=== PATIENT | male | born 1990 | race Caucasian/White ===

== ENCOUNTER 2016-06-25 11:23 | Emergency (ER) | payer SELFPAY ==
[2016-06-25 13:24] VITALS: BP 128/85
--- NOTE | 2016-06-25 14:35 | RAD ---
HISTORY: Tender distal third of the humerus, medial condyle after injury of the left elbow COMPARISONS: None VIEWS: 4, Frontal, lateral, and oblique views of the left elbow FINDINGS: BONE DENSITY: Normal. BONES: There is no displaced fracture. JOINTS: There is no arthropathy. There is no posterior supracondylar fat pad to suggest a joint effusion. ALIGNMENT: There is no dislocation. SOFT TISSUES: Unremarkable. OTHER FINDINGS: None. IMPRESSION: NO ACUTE OSSEOUS INJURY. IF SYMPTOMS PERSIST, RECOMMEND REPEAT IMAGING.
--- NOTE | 2016-06-25 14:36 | RAD ---
INDICATION: Left shoulder injury. TECHNIQUE: 3 views of the left shoulder were obtained. FINDINGS: The bones are in normal alignment. No fracture is seen. Joint spaces appear maintained. IMPRESSION: NO EVIDENCE OF FRACTURE.
--- NOTE | 2016-06-25 14:41 | UC ---
Upper Extremity HPI - HPI Summary HPI Summary: pt p/w wiith left shoulder pain that started yesterday whill he was crawling through an attic installing insulation. pt describes the pain at 8/10 sharp pain that radiates from the shoulder to the elbow with intermittant tingling sensation pt took a rest and the pain subsided somewhat. the next morning, pt was taking a ladder off a truck and triggored the same pain. denies trauma, weakness, f/c/s/n/v/d/abd pain, dizziness, cp, sob. - History of Current Complaint Chief Complaint: UCUpperExtremity Stated Complaint: SHOULDER INJURY Time Seen by Provider: 06/25/16 13:43 Hx Obtained From: Patient Onset/Duration: Sudden Onset, Lasting Days - 2, Worse Since - WORSE TODAY Severity Initially: Severe Severity Currently: Moderate Pain Intensity: 6 Location Of Pain: Is Discrete @ - left shoulder, Radiates To - elbow Character: Sharp Aggravating Factor(s): Movement Alleviating Factor(s): Ice, OTC Meds, Rest Associated Signs And Symptoms: Positive: Numbness/Tingling. Negative: Swelling , Redness, Bruising, Fever, Weakness Related History: Dominant Hand Right - Risk Factors Non-Orthopedic Risk Factor: Negative - Allergies/Home Medications Allergies/Adverse Reactions: Allergies Allergy/AdvReac Type Severity Reaction Status Date / Time No Known Allergies Allergy Verified 06/25/16 13:24 Home Medications: Home Medications Hydroxychloroquine TAB* [Plaquenil TAB*] 2 tab PO BID 06/25/16 [History Confirmed 06/25/16] PMH/Surg Hx/FS Hx/Imm Hx - Additional Past Medical History Additional PMH: sarcoidosis Endocrine History Of: Denies: Diabetes, Thyroid Disease Cardiovascular History Of: Denies: Cardiac Disorders, Hypertension Respiratory History Of: Denies: COPD, Asthma GI/ History Of: Denies: Ulcer - Surgical History Surgical History: None - Family History Known Family History: Positive: Cardiac Disease, Hypertension Negative: Respiratory Disease - Social History Occupation: Employed Full-time Lives: With Family Alcohol Use: None Substance Use Type: None Smoking Status (MU): Light Every Day Tobacco Smoker Cessation Counseling: Patient Advised to Stop Review of Systems Constitutional: Negative Skin: Negative Eyes: Negative ENT: Negative Respiratory: Negative Cardiovascular: Negative Gastrointestinal: Negative Genitourinary: Negative Motor: Negative Neurovascular: Negative Musculoskeletal: Other: - shoulder pain with radiation to the elbow Neurological: Paresthesia Psychological: Negative All Other Systems Reviewed And Are Negative: Yes Physical Exam Triage Information Reviewed: Yes Appearance: Well-Appearing, No Pain Distress, Well-Nourished Vital Signs: Initial Vital Signs Temp 98.8 F 06/25/16 13:18 Pulse 85 06/25/16 13:18 Resp 18 06/25/16 13:18 BP 128/85 06/25/16 13:18 Pulse Ox 97 06/25/16 13:18 Vital Signs Reviewed: Yes Eyes: Positive: Conjunctiva Clear. Negative: Discharge ENT: Positive: Hearing grossly normal. Negative: Muffled/hoarse voice Dental Exam: Normal Neck: Positive: Supple, Nontender, Other: - spurling positive on the left Respiratory: Positive: Lungs clear, Normal breath sounds, No respiratory distress, No accessory muscle use Cardiovascular: Positive: RRR, No Murmur Musculoskeletal: Positive: Other: - rotator cuff strength intact. tests of supraspinatus and subscap elicit pain. rom limited d/t pain. some tenderness over biceps tendon. spurlings positive on the left Neurological: Positive: Alert, Muscle Tone Normal, Other: - reflexes, strength and sensation intact bl. spurlings positive on the left Psychological: Positive: Age Appropriate Behavior Skin Exam: Other - warm dry normal color Skin: Positive: Other - scattered sacoidosis lesions UC Physical Exam Vital Signs On Initial Exam: Initial Vitals Temp Pulse Resp BP Pulse Ox 98.8 F 85 18 128/85 97 06/25/16 13:18 06/25/16 13:18 06/25/16 13:18 06/25/16 13:18 06/25/16 13:18 Upper Extremity Course/Dx - Course Course Of Treatment: shoulder sprain, cervical radiculopathy - Differential Dx/Diagnosis Differential Diagnosis/HQI/PQRI: Arthritis, Bursitis, Fracture (Closed), Strain , Sprain, Other - cervical radiculopathy Provider Diagnoses: shoulder sprain, cervical radiculopathy Discharge - Discharge Plan Condition: Stable Disposition: HOME Prescriptions: Naproxen [Naproxen 500 MG TABS] 500 mg PO BID #14 tab Patient Education Materials: How to Use a Sling (GEN), Shoulder Sprain (ED), Cervical Radiculopathy (ED) Forms: *Work Release Referrals: Donald Burton MD [Primary Care Provider] - (follow up in 3-5 days) Additional Instructions: PHYSICAL THERAPY REFERRAL: You have been prescribed physical therapy. Treatments may include stretching, exercise, application of heat or cold, and other modalities. After an injury, PT can reduce swelling and pain. In recovery, PT is used to restore mobility and strength. Your specific treatment goals are: Reduction of Swelling (EGS, US, ice as needed) _x____ Pain Reduction (EGS, US, ice as needed) TENS Pack Fitting and Instruction Wound Hydrotherapy __x___ Preservation of Mobility Christian of Mobility Strength Christian _x____ Work or Sports Hardening This instruction sheet also serves as your PHYSICAL THERAPY REFERRAL! Please take it with you to the therapist, so he/she will be aware of your diagnosis and treatment plan. You may see the physical therapist of your choice for these treatments, but may wish to check with your insurance to be sure the provider you select is covered. It's important to see the doctor to whom you have been referred for follow up. EXERCISE PROGRAM FOR THE SHOULDER: Since the shoulder moves in so many directions, the joint attachment is weak. Muscles provide most of the stability to the shoulder. You must exercise your shoulder to prevent painful instability or stiffening. PASSIVE - These may be begun within a few days of the injury. While standing, lean forward, allowing the arm to hang down towards the floor. Move the arm in small circles while slowly twisting your chest towards and away from the hanging arm. Do this for one minute. ACTIVE - These may be performed when the doctor gives permission. Begin with the arms at the sides. Raise the arms forward (shoulder's width apart) until they reach shoulder level. Then slowly swing both arms back until they are aiming straight out away from each other. Then bring them forward again, and finally, lower them to your sides. Repeat 20 to 30 times. As you improve, put weights in your hands for the exercise. Start with one pound, and work up to 10 pounds. Never use more than is comfortable. Athletes may work up to 30 pounds. REMEMBER TO TAKE YOUR ARM OUT OF THE SLING SEVERAL TIMES A DAY TO MOVE THE ELBOW SO IT DOES NOT GET STIFF.
== END 2016-06-25 14:55 | disposition home or self-care (01) ==
LOC: UCEAST 11:23
DX: S43.402A Unspecified sprain of left shoulder joint, initial encounter (principal); X50.1XXA Overexertion from prolonged static or awkward postures, initial encounter; Y93.H3 Activity, building and construction; Y92.008 Other place in unspecified non-institutional (private) residence as the place of occurrence of the external cause; M54.12 Radiculopathy, cervical region; F17.210 Nicotine dependence, cigarettes, uncomplicated
CPT/HCPCS: 99211; G0463

== ENCOUNTER 2019-12-20 10:47 | Observation (INO) ==
[~2019-12-20 10:47] MED LIST: Buffered Lidocaine 1% SYRIN 1 ml INTRADERM ONE; Lactated Ringers 1000 ml BAG 1,000 ML IV SCH
[2019-12-20] MEDS ORDERED: ceFAZolin 2 GM PREMIX 2 GM/50 ML BAG ONE (11:09)
[2019-12-20] MEDS ORDERED: Bacitracin INJECTION 50,000 UNITS ONE (11:58)
[2019-12-20] MEDS ORDERED: Artificial Tear OPHTH.OINT 3.5 GM ONE (11:58)
[2019-12-20] MEDS ORDERED: Midazolam 2 mg/2 ml VIAL 1 mg/ml 2 ml VIAL (2 mg) ONE (12:02)
[2019-12-20] MEDS ORDERED: fentaNYL 250 mcg/5 ml 50 MCG/ML 5 ml VIAL (250 MCG) ONE (12:02)
[2019-12-20] MEDS ORDERED: Rocuronium 50 mg VIAL 10 mg/ml 5 ml VIAL (50 mg) ONE ×2 (12:02→13:03)
[2019-12-20] MEDS ORDERED: Naloxone 0.4 mg VIAL 0.4 mg/ml 1 ml VIAL IV PRN (12:52)
[2019-12-20] MEDS ORDERED: HYDROmorphone 1 MG/1 ML SYRINGE IV PRN (12:52)
[2019-12-20] MEDS ORDERED: fentaNYL 100 mcg/2 ml 50 MCG/ML VIAL IV PRN (12:52)
[2019-12-20] MEDS ORDERED: Ketamine HCL 50 mg/ml 10 ml VIAL (500 MG) ONE (13:04)
[2019-12-20] MEDS ORDERED: Dexamethasone IV 4 MG/ML VIAL 1 ml VIAL ONE (13:29)
[2019-12-20] MEDS ORDERED: Propofol 10 MG/ML 20 ML BTL ONE (13:29)
[2019-12-20] MEDS ORDERED: Ondansetron 4 mg VIAL 2 MG/ML 2 ml VIAL ONE (13:29)
[2019-12-20] MEDS ORDERED: Acetaminophen IV 1 GM/100ML 100 ML ONE (13:31)
[2019-12-20] MEDS ORDERED: Ondansetron 4 mg VIAL 2 MG/ML 2 ml VIAL IV PRN (14:35)
[2019-12-20] MEDS ORDERED: HYDROcodone/ACETAMIN 5/325 mg TAB PO PRN (14:35)
[2019-12-20] MEDS ORDERED: Magnesium Hydroxide LIQ 30 ML UDC PO PRN (14:35)
[2019-12-20] MEDS: HYDROcodone/ACETAMIN 5/325 mg TAB PO PRN ×2 (16:57→21:55)
[2019-12-21] MEDS: HYDROcodone/ACETAMIN 5/325 mg TAB PO PRN ×2 (02:20→09:44)
[2019-12-21 07:38] VITALS: BP 115/75
== END 2019-12-21 10:15 | disposition home or self-care (01) ==
LOC: OR 10:47 → INTOOBSV 15:42 → SSU 15:42
PROVIDERS: ADMIT Neurological Surgery; ATTEND Neurological Surgery